=== PATIENT | female | born 1995 | race Caucasian/White ===

== ENCOUNTER 2019-02-28 18:49 | Emergency (ER) | payer BC ==
[2019-02-28 19:03] VITALS: BP 149/87
--- NOTE | 2019-02-28 19:20 | UC ---
[facility] HPI - HPI Summary HPI Summary: 23-year-old woman comes in with a chief complaint of dental pain. Please had a chronic recurrent dental infection the left lower molar. About 5 days ago and started get bad again. Started with pain and swelling in the cheek. No fevers measured. Has been taking Tylenol and ibuprofen which only helps some with the pain. Patient reports that she has a dental appointment arranged for late March 2019. - History of Current Complaint Chief Complaint: UCDentalProblem Stated Complaint: TOOTH PAIN Time Seen by Provider: 02/28/19 19:12 Hx Last Menstrual Period: 01/29/19 Pain Intensity: 9 - Allergies/Home Medications Allergies/Adverse Reactions: Allergies Allergy/AdvReac Type Severity Reaction Status Date / Time glycerin Allergy Intermediate Hives Verified 02/28/19 19:03 Home Medications: Home Medications Norgestimate-Ethinyl Estradiol [Sprintec 28 Day Tablet] 1 tab PO DAILY 02/28/19 [History Confirmed 02/28/19] metFORMIN* [Glucophage 500 MG TAB *] 500 mg PO BID 02/28/19 [History Confirmed 02/28/19] PMH/Surg Hx/FS Hx/Imm Hx Previously Healthy: Yes Endocrine History: Diabetes - Surgical History Surgical History: None - Family History Known Family History: Positive: Non-Contributory - Social History Alcohol Use: Rare Substance Use Type: None Smoking Status (MU): Never Smoked Tobacco Review of Systems All Other Systems Reviewed And Are Negative: Yes Constitutional: Positive: Negative Skin: Positive: Negative Eyes: Positive: Negative ENT: Positive: Dental Pain Respiratory: Positive: Negative Cardiovascular: Positive: Negative Gastrointestinal: Positive: Negative Motor: Positive: Negative Neurovascular: Positive: Negative Musculoskeletal: Positive: Negative Neurological: Positive: Negative Psychological: Positive: Negative Is Patient Immunocompromised?: No Physical Exam Triage Information Reviewed: Yes Appearance: Well-Appearing, No Pain Distress, Well-Nourished Vital Signs: Initial Vital Signs Temp 98.1 F 02/28/19 18:56 Pulse 98 02/28/19 18:56 Resp 16 02/28/19 18:56 BP 149/87 02/28/19 18:56 Pulse Ox 98 02/28/19 18:56 Vital Signs Reviewed: Yes Eye Exam: Normal Eyes: Positive: Conjunctiva Clear ENT: Positive: Pharynx normal Dental: Positive: Other: - Left lower molar with caries in it. There is left lower gingival swelling and swelling at the left cheek also. Oral pharynx is open. Voice is normal. Neck: Positive: Supple Respiratory: Positive: Lungs clear, Normal breath sounds, No respiratory distress Cardiovascular: Positive: RRR Musculoskeletal: Positive: Strength Intact, ROM Intact Neurological: Positive: Alert, Muscle Tone Normal Psychological: Positive: Age Appropriate Behavior Skin Exam: Normal Dental Complaint Course/Dx - Course Course Of Treatment: We'll treat the dental infection with amoxicillin 500 mg by mouth 3 times a day. Patient's been taking ibuprofen and acetaminophen and I discussed with her the appropriate dosing to avoid overdose. For the most severe pain around a prescription for [place] 07/09/24 total number of 10 tablets. Patient has a follow-up with dentist at the end of March 2019 and I did put one refill on the amoxicillin to be used if needed prior to that time. Otherwise follow-up sooner if worse or not improving or any questions or concerns. - Differential Dx/Diagnosis Provider Diagnosis: Toothache, Dental abscess Discharge ED - Sign-Out/Discharge Documenting (check all that apply): Patient Departure All imaging exams completed and their final reports reviewed: No Studies - Discharge Plan Condition: Stable Disposition: HOME Prescriptions: Amoxicillin PO (*) [Amoxicillin 500 MG CAP*] 500 mg PO TID #30 cap HYDROcodone/ACETAMIN 5-325 MG* [[place] 5-325 TAB*] 1 tab PO Q4H PRN #10 tab MDD 6 PRN Reason: Pain - Moderate Patient Education Materials: Dental Abscess (ED), Toothache (ED) Referrals: Georgiana Ling PA [Primary Care Provider] - Additional Instructions: FOLLOW UP WITH YOUR DENTIST. GET REEVALUATED SOONER IF NOT IMPROVED OR WORSE OR ANY QUESTIONS OR CONCERNS. - Billing Disposition and Condition Condition: STABLE Disposition: Home
== END 2019-02-28 19:30 | disposition home or self-care (01) ==
LOC: UCEAST 18:49
DX: K08.89 Other specified disorders of teeth and supporting structures (principal); K04.7 Periapical abscess without sinus; E11.9 Type 2 diabetes mellitus without complications; Z88.8 Allergy status to other drugs, medicaments and biological substances; Z79.84 Long term (current) use of oral hypoglycemic drugs
CPT/HCPCS: 99212; G0463